=== PATIENT | female | born 1965 | race Caucasian/White ===

== ENCOUNTER 2020-03-30 06:00 | Outpatient (RCR) | payer BC, SELFPAY | END 2020-04-28 23:59 | disposition home or self-care (01) | LOC: WPT 06:00 | PROVIDERS: PCP Nurse Practitioner Family; Referring Provider Nurse Practitioner Family; Visit Provider Nurse Practitioner Family | DX: M54.5 Low back pain (principal); G89.29 Other chronic pain | CPT/HCPCS: 97110; 97162 ==

== ENCOUNTER → 2020-04-28 10:21 | Outpatient (BNVA) | payer BC, SELFPAY | PROVIDERS: Family Provider Nurse Practitioner Family; PCP Nurse Practitioner Family; Referring Provider Nurse Practitioner Family; Visit Provider Orthopaedic Surgery | DX: Z96.652 Presence of left artificial knee joint (principal) | CPT/HCPCS: 73560; 73565 ==

== ENCOUNTER 2022-03-03 15:25 | Outpatient (CLI) | payer OTHER, SELFPAY ==
--- NOTE | 2022-03-03 15:43 | XR_ITS ---
WS: [id number] KUB, AP view, 03/03/2022 Clinical Data: urolithiasis Comparison: KUB, 08/01/2019. Findings: No abnormal intraabdominal masses are seen. There is no dilatated small bowel or evidence of obstruct ion. There is a 0.9 cm calcification overlying the superior pole of the left kidney. There is a 0.6 cm jenny cification overlying the lateral aspect of the right L3 transverse process which may be in the proxim al right ureter. XR/XR KUB [id number] Impression: 1. Left upper pole renal calcification. 2. Probable 0.6 cm proximal right ureteral calculus.
== END 2022-03-03 15:26 | disposition home or self-care (01) ==
PROVIDERS: PCP Nurse Practitioner Family; Visit Provider Urology
DX: N20.9 Urinary calculus, unspecified (principal)
CPT/HCPCS: 74018; 81003; 99203

== ENCOUNTER → 2022-03-04 09:53 | Outpatient (BNVA) | payer MEDICARE, OTHER, SELFPAY | PROVIDERS: PCP Nurse Practitioner Family; Visit Provider Urology | DX: N20.2 Calculus of kidney with calculus of ureter (principal); N23 Unspecified renal colic; N13.30 Unspecified hydronephrosis ==

== ENCOUNTER 2022-03-07 07:16 | Day surgery (SDC) | payer MEDICARE, OTHER, SELFPAY ==
[2022-03-07] VITALS (7 sets, daily range): BP systolic 130–170; BP diastolic 80–119; PULSE 71–84; RESP 18; TEMP 36.1–36.2; O2SAT 94–100; BMI 34.9
--- NOTE | 2022-03-07 04:53 | W.PM.OPSUD ---
Surgery/Procedure H&P Update DATE OF PROCEDURE: March 07, 2022 DATE H&P PERFORMED: 03/03/22 H&P UPDATE INFORMATION: I have reviewed H&P completed within last 30 days, I have examined patient prior to procedure, No changes to prior documentation and H&P is in [facility] EMR on date indicated CHANGES TO PREVIOUS DOCUMENTATION: Stone has progressed about an inch and a half from its previous position. No change in plans. PLANNED PROCEDURE: Operation Date: 03/07/22 09:10 Proposed Procedures p ESWL Extracorporeal Shockwave Lithotrispy 03968/22218/11771/N13.30(Right) - Rashad Brown MD s Cystoscopy(Not Applicable) - MD ale Dinero RightRetrograde(Right) - MD ale Dinero Ureteral Stent Placement(Right) - Rashad Brown MD
--- NOTE | 2022-03-07 07:31 | XR_ITS ---
WS: [id number] XR KUB [id number] REASON FOR EXAM: Preop right ureteral ESWL for stone FINDINGS: Compared to previous examination of 03/03/2022, upper pole left renal calculus is stable. The right ureteral calculus has migrated distally from the transverse process level of L3 to the cronin sverse process level of L4. Other smaller bilateral renal calculi demonstrated on CT scan of 03/01/2022 are not readily identifiabl e. No other significant interval change. XR/XR KUB [id number] IMPRESSION: Left renal and right ureteral calculus as above.
[2022-03-07] MEDS: sodium chloride 0.9% 1,000 ML 30 ML IV (08:13)
[2022-03-07] MEDS: levofloxacin-dextrose 5 % 500 MG/100 ML PREMIX 100 MG IV (08:15)
--- NOTE | 2022-03-07 08:18 | ANES.PREANE2 ---
Pre-Anesthetic Assessment Height/Weight: Height 1.65 m Temp Pulse Resp BP Pulse Ox 97.0 F L 84 18 170/119 99 03/07/22 07:54 03/07/22 07:54 03/07/22 07:54 03/07/22 07:54 03/07/22 07:54 Preop Diagnosis: Right proximal ureteral stone with refractory obstruction and symptoms Operation Date: 03/07/22 09:10 Proposed Procedures p ESWL Extracorporeal Shockwave Lithotrispy 01039/42967/27210/N13.30(Right) - Rashad Brown MD s Cystoscopy(Not Applicable) - Rashad Brown MD s RightRetrograde(Right) - Rashad Brown MD s Ureteral Stent Placement(Right) - Rashad Brown MD Familial anesthetic complications: none Was Beta Ricky taken within 24 hours: N/A Was Clonidine taken within 24 hours: N/A Last intake: Intake Last Liquid Date 03/06/22 Last Liquid Time 22:00 Last Solid Date 03/06/22 Last Solid Time 22:00 Social No alcohol and No tobacco Exam alert, oriented x 3, clear to auscultation bilaterally and regular rate & rhythm Airway Submandibular: within normal limits Cervical ROM: within normal limits Mallampati: Class II Dentition: full CV/HEM Hypertension GI Gastroesophageal Reflux Disease Metabolic Hyperlipidemia and Morbid Obesity Anesthetic Plan ASA status: 2 Anesthesia: General Medications/Allergies Home Medications Medication Instructions Recorded Confirmed Last Taken Type amlodipine 2.5 mg tablet 2.5 mg PO DAILY 03/02/22 03/07/22 03/06/22 History atorvastatin 10 mg tablet 10 mg PO DAILY 03/02/22 03/07/22 03/06/22 History celecoxib 200 mg capsule (Celebrex) 200 mg PO BID 03/02/22 03/07/22 Unknown History hydrochlorothiazide 25 mg tablet 25 mg PO DAILY 03/02/22 03/07/22 03/06/22 History losartan 25 mg tablet 25 mg PO DAILY 03/02/22 03/07/22 03/06/22 History montelukast 10 mg tablet 10 mg PO DAILY 03/02/22 03/07/22 03/06/22 History (Singulair) pantoprazole 40 mg tablet,delayed 40 mg PO DAILY 03/02/22 03/07/22 03/06/22 History release (Protonix) topiramate 100 mg capsule 100 mg PO DAILY 03/02/22 03/07/22 03/05/22 History sprinkle,extended release 24 hr ketorolac 10 mg tablet 10 mg PO TID PRN 03/03/22 03/07/22 03/06/22 History ondansetron HCl 4 mg tablet 4 mg PO Q6H PRN #20 tab 03/03/22 03/07/22 03/06/22 Rx ondansetron HCl 4 mg tablet 4 mg PO Q8H 03/03/22 03/07/22 Unknown History oxycodone-acetaminophen 7.5 mg-325 1 tab PO Q8H PRN 7 Days #21 tab 03/03/22 03/07/22 03/06/22 Rx mg tablet (Percocet) promethazine 25 mg rectal 25 mg MS Q6H PRN #12 ea 03/03/22 03/07/22 Unknown Rx suppository tamsulosin 0.4 mg capsule 0.4 mg PO DAILY 03/03/22 03/07/22 03/06/22 History Allergies Allergy/AdvReac Type Severity Reaction Status Date / Time rizatriptan Allergy Severe ADR-Chest Verified 03/07/22 07:52 Pain tizanidine Allergy Severe ADR-Chest Verified 03/07/22 07:52 Pain hydrocodone Allergy Intermediate ALGY-Rash Verified 03/07/22 07:52 naproxen Allergy Intermediate ADR-Nausea Verified 03/07/22 07:52 [From Flanax (naproxen)] Current Medications Generic Name Dose Route Start Last Admin Trade Name Freq PRN Reason Stop Dose Admin Sodium Chloride 1,000 mls @ 30 mls/hr 03/07/22 07:45 03/07/22 08:13 Sodium Chloride 0.9% IV 03/08/22 07:44 30 mls/hr .Q24H CHINMAY Administration PFSH Anesthesia Medical History GERD (gastroesophageal reflux disease) Surgical History History of fusion of cervical spine 2008 History of lithotripsy 2011 Family History Mother , AT AGE 58 Cancer LUNG Father , AT AGE 62 History of heart attack Other CAD (coronary artery disease) Diabetes Lung disease Denies family history of Dementia Chronic kidney disease (CKD) Anesthesia complication Stroke Social History Smoking and tobacco status: never smoked Alcohol intake: never Lives independently: Yes Household members: spouse Marital status: Current occupational status: employed History of recent travel: No Data Anesthesia : 03/07/22 08:09 Cardiac Studies: No Data to Display
[2022-03-07] MEDS: fentaNYL 50 mcg/mL INJ 2mL IVP (08:23)
--- NOTE | 2022-03-07 08:24 | PM.OP ---
Operative Report Date of procedure: March 07, 2022 Pre-op diagnosis: Refractory right mid ureteral stone with obstructive symptoms Post-op diagnosis: Refractory right mid ureteral stone with obstructive symptoms Procedure done: 1. Right extracorporeal shockwave lithotripsy, ureteral calculus 2. Cystoscopy, RIGHT retrograde ureteropyelogram 3. Right ureteral stent placement Specimens removed/disposition: None Pathology: None Surgeon: Stephanie Estimated blood loss: None Urine output: Not measured Complications: None Findings: Stone in the expected position. Easily focused upon with shockwave. Good change noted Stent left indwelling for completion procedure Brief History: Vika is a very pleasant 56-year-old white female with a longstanding history of multiple urolithiasis. She is passed many stones and has had treatment for other stones. Recently with severe right renal colicky symptoms and was found to have about a 7 mm right proximal ureteral stone with minimal progression Ultimately elected treatment with ESWL possible stent Procedure: After routine preoperative evaluation examination and obtaining of informed consent she was taken to the operating suite on 03/07/2022 where general anesthesia was administered without difficulty after appropriate timeout was performed, SCDs confirmed to be functioning, preoperative antibiotics administered, beta-inocencia protocol confirmed. The stone was easily focused upon with the unit with a shock at position posteriorly. Shockwave therapy was initiated intensity 1 with advancement of the intensity to 7. Stone showed change early in the treatment Rate was begun at 70 and advanced to 90. At the completion of the procedure: The stone appeared to be changed but it is hard to say exactly how much. There was some overlying bowel gas which made me visualization somewhat less than ideal. For that reason it was decided to place a stent. She was then repositioned in dorsolithotomy position and prepped and draped in usual sterile fashion. 21 [place] cystoscope with 30 degree lens was introduced into the urethra meatus and advanced into the bladder without difficulty. An 8 [place] cone-tip catheter was utilized for a RIGHT retrograde ureteropyelogram: The distal ureter was normal in course and caliber. There is still some filling defect although smaller at the area of the stone in the ureter proximal to the stone was dilated. A flexible tip guidewire was then passed without difficulty bypassing the area of the stone. A 6 [place] by 26 cm double-pigtail stent was advanced without difficulty over the guidewire through the cystoscope easily passed the area of the stone's previous location. The wire was removed with confirmation of proximal curl forming in the renal pelvis and distal curl forming in the bladder. Bladder was drained and the procedure was completed. She tolerated procedure well without complications and was awakened in the operating room returned recovery in stable condition. PLANS: 1. Anticipate discharge from outpatient surgery 2. Follow-up in roughly 1 week with KUB likely cystoscopy and stent removal.
[2022-03-07 08:42] LABS: Anion Gap 16.3 (5-19); Blood Urea Nitrogen 17 mg/dL (6-20); Calcium 9.1 mg/dL (8.5-10.5); Carbon Dioxide 23 mmol/L (22-29); Chloride 105 mmol/L (98-107); Glomerular Filtration Rate 57.8 mL/min (90-130); Glucose 95 mg/dL (65-115); Osmolality Calculated 293 mOsm/kg (285-295); Potassium 3.3 mmol/L (3.5-5.1); Sodium 141 mmol/L (136-145)
--- NOTE | 2022-03-07 09:53 | SUR.OPER ---
OMNIPAQUE 50ML TO STERILE FIELD. [id number]. EXP 11/11/2024
--- NOTE | 2022-03-07 13:38 | ANE.PACU2 ---
Inpatient post-anesthesia follow up: Airway intact: Yes Vital signs: Temperature 97.0 F Pulse Rate 71 Respiratory Rate 18 Blood Pressure 159/111 Pulse Oximetry 94 Oxygen Delivery Me thod Room Air Oxygen Flow Rate 5 Fraction of Inspir ed Oxygen Hydration adequate: Yes Nausea and vomiting: No Pain level: 2 Mental status: Baseline
== END 2022-03-07 10:45 | disposition home or self-care (01) ==
PROVIDERS: Anesthesiology; PCP Nurse Practitioner Family; Visit Provider Urology
PROC: (CPT 50590; principal; 2022-03-07 09:00)
PROC: 0TJB8ZZ Inspection of Bladder, Via Natural or Artificial Opening Endoscopic (ICD-10-PCS; CPT 52000; 2022-03-07 09:00)
PROC: (CPT 74420; 2022-03-07 09:00)
PROC: (CPT 50605; 2022-03-07 09:00)
DX: N20.1 Calculus of ureter (principal); I10 Essential (primary) hypertension; K21.9 Gastro-esophageal reflux disease without esophagitis; E78.5 Hyperlipidemia, unspecified; E66.01 Morbid (severe) obesity due to excess calories; Z68.34 Body mass index [BMI] 34.0-34.9, adult
CPT/HCPCS: 50590; 52332; 36415; 74018; 80048; C2625; J1100; J1956; J2405; J2704; J3010; J3490; J7030

== ENCOUNTER 2022-03-11 07:47 | Day surgery (SDC) | payer MEDICARE, OTHER, SELFPAY ==
[2022-03-09 13:40] VITALS: BMI 34.9
--- NOTE | 2022-03-11 08:26 | W.PM.OPSUD ---
Surgery/Procedure H&P Update DATE OF PROCEDURE: March 11, 2022 DATE H&P PERFORMED: 03/02/22 H&P UPDATE INFORMATION: I have reviewed H&P completed within last 30 days, I have examined patient prior to procedure and No changes to prior documentation PREOP DIAGNOSIS: Acid reflux and history of hiatal hernia PRIMARY INDICATION FOR PROCEDURE: The same PLANNED PROCEDURE: Operation Date: 03/11/22 09:30 Proposed Procedures p EGD 10068/K21.9(Not Applicable) - Atif Schilling MD Operation Date: 05/20/22 08:45 Proposed Procedures p EGD 77055/K21.9(Not Applicable) - Atif Schilling MD
[2022-03-11 08:48] VITALS: BP 172/113; PULSE 83; RESP 16; TEMP 36.1; O2SAT 97
[2022-03-11] MEDS: sodium chloride 0.9% 1,000 ML 30 ML IV (09:13)
--- NOTE | 2022-03-11 09:31 | ANES.PREANE2 ---
Pre-Anesthetic Assessment Height/Weight: Height 1.65 m Weight 95.254 kg Temp Pulse Resp BP Pulse Ox 97 F L 83 16 172/113 97 03/11/22 08:48 03/11/22 08:48 03/11/22 08:48 03/11/22 08:48 03/11/22 08:48 Preop Diagnosis: Acid reflux and history of hiatal hernia Operation Date: 03/11/22 09:30 Proposed Procedures p EGD 88092/K21.9(Not Applicable) - Atif Schilling MD Operation Date: 05/20/22 08:45 Proposed Procedures p EGD 83921/K21.9(Not Applicable) - Atif Schilling MD Familial anesthetic complications: None Was Beta Ricky taken within 24 hours: N/A Was Clonidine taken within 24 hours: N/A Last intake: Intake Last Liquid Date 03/10/22 Last Liquid Time 11:42 Last Solid Date 03/10/22 Last Solid Time 18:00 Social No alcohol and No tobacco Exam alert, oriented x 3, clear to auscultation bilaterally and regular rate & rhythm Airway Submandibular: within normal limits Cervical ROM: within normal limits Mallampati: Class II Dentition: full CV/HEM Hypertension GI Gastroesophageal Reflux Disease Metabolic Hyperlipidemia and Morbid Obesity Anesthetic Plan ASA status: 2 Anesthesia: MAC Medications/Allergies Home Medications Medication Instructions Recorded Confirmed Last Taken Type amlodipine 2.5 mg tablet 2.5 mg PO DAILY 03/02/22 03/11/22 03/10/22 History atorvastatin 10 mg tablet 10 mg PO DAILY 03/02/22 03/11/22 03/10/22 History celecoxib 200 mg capsule (Celebrex) 200 mg PO BID 03/02/22 03/11/22 03/04/22 History hydrochlorothiazide 25 mg tablet 25 mg PO DAILY 03/02/22 03/11/22 03/09/22 History losartan 25 mg tablet 25 mg PO DAILY 03/02/22 03/11/22 03/10/22 History montelukast 10 mg tablet 10 mg PO DAILY 03/02/22 03/11/22 03/10/22 History (Singulair) pantoprazole 40 mg tablet,delayed 40 mg PO DAILY 03/02/22 03/11/22 03/10/22 History release (Protonix) topiramate 100 mg capsule 100 mg PO DAILY 03/02/22 03/09/22 03/05/22 History sprinkle,extended release 24 hr oxycodone-acetaminophen 7.5 mg-325 1 tab PO Q8H PRN 7 Days #21 tab 03/10/22 03/11/22 03/10/22 Rx mg tablet (Percocet) Allergies Allergy/AdvReac Type Severity Reaction Status Date / Time rizatriptan Allergy Severe ADR-Chest Verified 03/09/22 13:48 Pain tizanidine Allergy Severe ADR-Chest Verified 03/09/22 13:48 Pain hydrocodone Allergy Intermediate ALGY-Rash Verified 03/09/22 13:48 naproxen Allergy Intermediate ADR-Nausea Verified 03/09/22 13:48 [From Flanax (naproxen)] Current Medications Generic Name Dose Route Start Last Admin Trade Name Freq PRN Reason Stop Dose Admin Sodium Chloride 1,000 mls @ 30 mls/hr 03/11/22 08:30 03/11/22 09:13 Sodium Chloride 0.9% IV 30 mls/hr .Q24H CHINMAY Administration PFSH Anesthesia Medical History GERD (gastroesophageal reflux disease) Surgical History History of fusion of cervical spine 2008 History of lithotripsy 2011 Family History Mother , AT AGE 58 Cancer LUNG Father , AT AGE 62 History of heart attack Other CAD (coronary artery disease) Diabetes Lung disease Denies family history of Dementia Chronic kidney disease (CKD) Anesthesia complication Stroke Social History Smoking and tobacco status: never smoked Alcohol intake: never Lives independently: Yes Household members: spouse Marital status: Current occupational status: employed History of recent travel: No Data Anesthesia Cardiac Studies: No Data to Display
[2022-03-11 09:33] VITALS: RESP 18; O2SAT 99
[2022-03-11] MEDS: fentaNYL 50 mcg/mL INJ 2mL IVP (09:33)
[2022-03-11 10:36] VITALS: BP 120/83; PULSE 87; RESP 18; TEMP 36.2; O2SAT 96
[2022-03-11 10:46] VITALS: BP 132/88; PULSE 86; RESP 18; TEMP 36.3; O2SAT 98
--- NOTE | 2022-03-11 10:46 | ANE.PACU2 ---
Documented by User: Eric Wood CRNA 03/11/22 10:47 Inpatient post-anesthesia follow up: Airway intact: Yes Vital signs: Temperature 97.1 F Pulse Rate 87 Respiratory Rate 18 Blood Pressure 120/83 Pulse Oximetry 96 Oxygen Delivery Me thod Room Air Oxygen Flow Rate Fraction of Inspir ed Oxygen Hydration adequate: Yes Nausea and vomiting: No Pain level: 1 Mental status: Baseline
== END 2022-03-11 11:14 | disposition home or self-care (01) ==
PROVIDERS: PCP Nurse Practitioner Family; Visit Provider Surgery
PROC: 0DJ08ZZ Inspection of Upper Intestinal Tract, Via Natural or Artificial Opening Endoscopic (ICD-10-PCS; CPT 43235; principal; 2022-03-11 09:30)
DX: K21.9 Gastro-esophageal reflux disease without esophagitis (principal); K21.00 Gastro-esophageal reflux disease with esophagitis, without bleeding; K29.70 Gastritis, unspecified, without bleeding; I10 Essential (primary) hypertension; E78.5 Hyperlipidemia, unspecified; E66.01 Morbid (severe) obesity due to excess calories; Z68.34 Body mass index [BMI] 34.0-34.9, adult
CPT/HCPCS: 43239; 88305; J2704; J3010; J7030

== ENCOUNTER 2022-03-14 08:49 | Outpatient (CLI) | payer MEDICARE, OTHER, SELFPAY ==
--- NOTE | 2022-03-14 09:09 | XRR_ITS ---
PROCEDURE INFORMATION: Exam: XR Abdomen Exam date and time: 03/14/2022 9:12 AM Age: 56 years old Clinical indication: Condition or disease; Kidney or ureter condition; Calculus (stone) in kidney; Prior surgery; Surgery type: --gb, appy, hystero, kidney stent; Patient HX: HX of stones f/u, RT side pain bladder area; Additional info: Kidney stone, kub @ [facility] 03/14/22 @ 9:30 am TECHNIQUE: Imaging protocol: XR of the abdomen. Views: Frontal supine view of the abdomen. 1 View. COMPARISON: CR XR KUB [id number] 03/07/2022 7:38 AM FINDINGS: Tubes, catheters and devices: Right double-J ureteral stent is in place. Gastrointestinal tract: Normal. No bowel dilation. Organs: A 3 mm calcification is seen in the region of the proximal right ureter. Nonobstructing bilateral renal calculi. Bones/joints: Unremarkable. XR/XR KUB [id number] IMPRESSION: 1. A 3 mm calcification is again seen in the region of the proximal right ureter. 2. Nonobstructing bilateral renal calculi.
== END 2022-03-14 08:50 | disposition home or self-care (01) ==
LOC: RAD 08:55
PROVIDERS: PCP Nurse Practitioner Family; Visit Provider Urology
DX: N20.1 Calculus of ureter (principal); N20.0 Calculus of kidney
CPT/HCPCS: 74018; 81003

== ENCOUNTER → 2022-03-23 08:58 | Outpatient (BNVA) | payer MEDICARE, OTHER, SELFPAY | PROVIDERS: PCP Nurse Practitioner Family; Visit Provider Surgery | DX: Z09 Encounter for follow-up examination after completed treatment for conditions other than malignant neoplasm (principal); E66.9 Obesity, unspecified | CPT/HCPCS: 99213 ==

== ENCOUNTER 2022-11-03 09:56 | Emergency (ER) | payer BC, SELFPAY ==
[2022-11-03 10:01] VITALS: BP 160/98; PULSE 94; RESP 18; TEMP 36.4; O2SAT 100; BMI 35.7
--- NOTE | 2022-11-03 10:17 | ECG_ITS ---
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 Measurements Intervals [place] Rate: 92 P: 42 MT: 160 QRS: -4 QRSD: 88 T: 19 QT: 337 QTc: 418 Interpretive Statements SINUS RHYTHM LOW QRS VOLTAGE IN PRECORDIAL LEADS [QRS DEFLECTION < 1.0 mV IN CHEST LEADS] PATTERN CONSISTENT WITH PULMONARY DISEASE Compared to ECG 04/12/2017 23:39:42 Sinus bradycardia no longer present ST (T wave) deviation no longer present Electronically Signed On 11-03-2022 10:36:42 REMOTELY OPERATED VEHICLE by Lalo Shultz M.D. [id number]
== END 2022-11-03 11:10 | disposition left against medical advice (07) ==
LOC: ER 10:08
PROVIDERS: Emergency Provider Family Medicine; PCP Nurse Practitioner Family
DX: Z53.21 Procedure and treatment not carried out due to patient leaving prior to being seen by health care provider (principal)
CPT/HCPCS: 93005; 99283

== ENCOUNTER 2023-06-30 14:40 | Outpatient (CLI) | payer BC, SELFPAY ==
--- NOTE | 2023-06-30 14:52 | MM_ITS ---
WS: [id number] BILATERAL 3D TOMOSYNTHESIS DIGITAL DIAGNOSTIC MAMMOGRAPHY WITH CAD CLINICAL INFORMATION: BR LUMPS HISTORY: LEFT axillary lump COMPARISON: 2018 TECHNIQUE: Bilateral CC, MLO, and ML views. FINDINGS: The breasts are composed of heterogeneous fibroglandular density, which can limit the detection of sm all underlying mass lesions. No suspicious parenchymal findings in the area of palpable concern LEFT axilla. Ultrasound is pending. ULTRASOUND LEFT AXILLA TECHNIQUE: Ultrasound left breast focused area of concern. CLINICAL INFORMATION: BR LUMPS FINDINGS: Ultrasound LEFT axilla in the area of concern. No suspicious underlying cystic or solid lesions. Norm al underlying subcutaneous fat and soft tissue. No enlarged lymph nodes. No suspicious findings LEFT axilla. IMPRESSION: BI-RADS 2 benign MM/[place] [id number] FOLLOW-UP: RETURN TO ANNUAL SCREENING MAMMOGRAPHY.
--- NOTE | 2023-06-30 15:11 | US_ITS ---
WS: [id number] BILATERAL 3D TOMOSYNTHESIS DIGITAL DIAGNOSTIC MAMMOGRAPHY WITH CAD CLINICAL INFORMATION: BR LUMPS HISTORY: LEFT axillary lump COMPARISON: 2018 TECHNIQUE: Bilateral CC, MLO, and ML views. FINDINGS: The breasts are composed of heterogeneous fibroglandular density, which can limit the detection of sm all underlying mass lesions. No suspicious parenchymal findings in the area of palpable concern LEFT axilla. Ultrasound is pending. ULTRASOUND LEFT AXILLA TECHNIQUE: Ultrasound left breast focused area of concern. CLINICAL INFORMATION: BR LUMPS FINDINGS: Ultrasound LEFT axilla in the area of concern. No suspicious underlying cystic or solid lesions. Norm al underlying subcutaneous fat and soft tissue. No enlarged lymph nodes. No suspicious findings LEFT axilla. IMPRESSION: BI-RADS 2 benign US/US soft tissue/extremity [id number] FOLLOW-UP: RETURN TO ANNUAL SCREENING MAMMOGRAPHY.
== END 2023-06-30 14:41 | disposition home or self-care (01) ==
LOC: RAD 14:41
PROVIDERS: PCP Nurse Practitioner Family; Visit Provider Nurse Practitioner Family
DX: N63.32 Unspecified lump in axillary tail of the left breast (principal)
CPT/HCPCS: 76882; 77062; G0279